=== PATIENT | male | born 1965 | race Two or more races ===

== ENCOUNTER 2024-02-20 10:52 | Inpatient (IN) | payer OTHER ==
[~2024-02-20] VITALS: Ht 180.3 cm; Wt 104.3 kg
--- NOTE | 2024-02-20 10:56 | NUR ---
PTE ALERTA Y ORIENTADO X3 REFIERE DOLOR EN LA PIERNA IZQUIERDA, PIERNA ESTA ENROJECIDA, INFLAMADA Y CALIENTE AL TACTO. SE LE ELIDIA S/V Y SE UBICA
[2024-02-20] MEDS ORDERED: 0.9 % SODIUM CHLORIDE 1,000 ML IV SCH ×2 (11:30→18:00)
[2024-02-20] MEDS ORDERED: CEFTRIAXONE SODIUM 1,000 MG VIAL IV ONE (11:30)
--- NOTE | 2024-02-20 11:54 | NUR ---
SE EDUCA A PTE SOBRE TX A RECIBIR EN EL AREA EL MISMO REFIERE ENTENDER. SE RODRICK PTE EN ESPERA DE RE-EVALUACION MEDICA.
[2024-02-20 13:18] LABS: HEMATOCRIT 43.1 % (39.0-48.0); HEMOGLOBIN 14.6 g/dL (13-16.00); MEAN CELL VOLUME 87.1 fL (80.0-100.00); MEAN CORPUSCULAR HEMOGLOBIN 29.4 pg (27.00-32.0); MEAN CORPUSCULAR HGB CONC 33.8 g/dl (32.0-36.0); PLATELET COUNT 269 K/uL (150-450); RED BLOOD COUNT 4.95 M/uL (4.00-6.00)
[2024-02-20 13:34] LABS: PARTIAL THROMBOPLASTIN TIME 31.8 SECONDS (22.0-34.0); PROTHROMBIN TIME 10.9 SECONDS (9.0-11.5)
[2024-02-20 13:37] LABS: ALBUMIN 3.3 gm/dL (3.4-5.0); BILIRUBIN TOTAL 0.36 mg/dL (0.3-1.2); CALCIUM 9.7 mg/dL (8.5-10.1); CREATININE SERUM 1.1 mg/dL (0.70-1.30); GFR 68.75; GLOBULINA 4.6 G/DL (2.4-3.5); POTASSIUM 4.11 mEq/L (3.5-5.1); TOTAL PROTEIN 7.9 gm/dL (6.4-8.2)
[2024-02-20] MEDS ORDERED: KETOROLAC TROMETHAMINE 30 MG VIAL IU STA (13:37)
[2024-02-20] MEDS ORDERED: MEPERIDINE HCL/PF 50 MG/ML VIAL IM STA (15:53)
[2024-02-20] MEDS ORDERED: KETOROLAC TROMETHAMINE 15 MG VIAL IU ONE (18:00)
[2024-02-20] MEDS ORDERED: PIPERACILLIN/TAZOBACTAM SODIUM 3.375 GM in DEXTROSE 5 % IN WATER 100 ML IV SCH (18:00)
[2024-02-20] MEDS ORDERED: ACETAMINOPHEN 500 MG GEL..CAP PO PRN (18:00)
[2024-02-20] MEDS ORDERED: ENALAPRILAT DIHYDRATE 1.25 MG/ML VIAL IV PRN (18:00)
[2024-02-20 23:42] VITALS: BP 178/100; O2SAT 97
[2024-02-21 01:45] VITALS: BP 155/80
[2024-02-21 04:49] LABS: PH,URINE 5.5 (5.0-8.0); URINE APPEARANCE Cloudy; URINE BILIRRUBIN Negative (NEGATIVE); URINE BLOOD Negative; URINE COLOR Dark Yellow; URINE GLUCOSE Negative (NEGATIVE); URINE KETONE 15 (NEGATIVE); URINE LEUKOCYTE Trace; URINE NITRATE Negative
[2024-02-21 04:52] LABS: URINE BACTERIA 20.8 uL (0.0-1933); URINE EPITHELIAL CELLS 6.9 uL (0.0-38.8); URINE RBC 5.5 uL (0.0-20.8)
[2024-02-21 05:03] LABS: URINE CAST 0.58 uL (0.0-1.40); URINE PROTEIN 100 (NEGATIVE); URINE WBC 1.4 uL (0.0-23.2)
[2024-02-21] MEDS ORDERED: FAMOTIDINE/PF 20 MG in 0.9 % SODIUM CHLORIDE 8 ML IV PUSH SCH (09:00)
[2024-02-21] MEDS ORDERED: ENOXAPARIN SODIUM 40 MG/0.4 ML SYRINGE SUBCUTANEO SCH (09:00)
[2024-02-21 09:41] VITALS: BP 150/86
== END 2024-02-21 15:46 | disposition left against medical advice (07) | DRG 603 ==
LOC: ER 10:54 → MEDJ 19:16 → MEDI 19:16 → SEC-K 20:34 → MEDI 02-21 00:49
PROVIDERS: Emergency Medicine; ADMIT Internal Medicine; ATTEND Internal Medicine
PROC: B44GZZZ Ultrasonography of Left Lower Extremity Arteries (ICD-10-PCS; principal; 2024-02-20)
PROC: B54CZZZ Ultrasonography of Left Lower Extremity Veins (ICD-10-PCS; 2024-02-20)
DX: L03.116 Cellulitis of left lower limb (principal); R65.10 Systemic inflammatory response syndrome (SIRS) of non-infectious origin without acute organ dysfunction; Z20.822 Contact with and (suspected) exposure to COVID-19; Z53.29 Procedure and treatment not carried out because of patient's decision for other reasons